=== PATIENT | female | born 1940 | race Two or more races ===

== ENCOUNTER 2018-08-24 15:47 | Outpatient (CLI) | payer OTHER ==
[~2018-08-24 15:47] MED LIST: LIPITOR40 MG; ZETIA10 MG; ZYRTEC10 MG PO
== END 2018-08-24 16:05 | disposition home or self-care (01) ==
LOC: RAD 15:47
DX: M54.2 Cervicalgia (principal)

== ENCOUNTER → 2019-11-14 | Outpatient (CLI) | payer OTHER ==
[~2019-11-14] MED LIST changes: +REMINYL8 MG
== END | disposition home or self-care (01) ==
LOC: TOM 09:14
DX: G44.89 Other headache syndrome (principal)

== ENCOUNTER 2019-11-19 10:16 | Emergency (ER) | payer OTHER ==
[~2019-11-19] VITALS: Ht 157.5 cm; Wt 52.6 kg
[~2019-11-19 10:16] MED LIST changes: -REMINYL8 MG
[2019-11-19] MEDS ORDERED: REMINYL8 MG (10:24)
== END 2019-11-19 12:17 | disposition home or self-care (01) ==
LOC: ER 10:16
DX: M25.552 Pain in left hip (principal); M25.551 Pain in right hip; S30.0XXS Contusion of lower back and pelvis, sequela; W18.09XS Striking against other object with subsequent fall, sequela

== ENCOUNTER → 2019-11-22 | Outpatient (CLI) | payer OTHER ==
[~2019-11-22] MED LIST changes: +REMINYL8 MG
== END | disposition home or self-care (01) ==
LOC: RAD 09:49
DX: M54.5 Low back pain (principal)

== ENCOUNTER → 2019-11-26 | Outpatient (CLI) | payer OTHER | END | disposition home or self-care (01) | LOC: MRI 16:08 → RAD 16:08 | DX: M54.5 Low back pain (principal) | CPT/HCPCS: 72148 ==

== ENCOUNTER → 2020-03-25 09:02 | Outpatient (CLI) | payer OTHER | END | disposition home or self-care (01) | LOC: LAB 09:02 | DX: N39.0 Urinary tract infection, site not specified (principal); E11.69 Type 2 diabetes mellitus with other specified complication; E03.8 Other specified hypothyroidism; E78.2 Mixed hyperlipidemia; I11.9 Hypertensive heart disease without heart failure; E78.00 Pure hypercholesterolemia, unspecified; R19.5 Other fecal abnormalities; E55.9 Vitamin D deficiency, unspecified; E53.8 Deficiency of other specified B group vitamins; I02.0 Rheumatic chorea with heart involvement ==

== ENCOUNTER 2020-03-25 11:04 | Outpatient (CLI) | payer OTHER | END 2020-03-25 11:07 | disposition home or self-care (01) | LOC: MRI 11:04 | DX: M54.6 Pain in thoracic spine (principal) | CPT/HCPCS: 72146 ==

== ENCOUNTER 2020-04-01 10:25 | Outpatient (CLI) | payer OTHER | END 2020-04-01 11:08 | disposition home or self-care (01) | LOC: NUCLEAR 10:25 | DX: M81.0 Age-related osteoporosis without current pathological fracture (principal); N39.0 Urinary tract infection, site not specified; I02.0 Rheumatic chorea with heart involvement; E11.69 Type 2 diabetes mellitus with other specified complication; E03.8 Other specified hypothyroidism; E78.2 Mixed hyperlipidemia; I11.9 Hypertensive heart disease without heart failure ==

== ENCOUNTER 2020-11-11 14:53 | Emergency (ER) | payer OTHER ==
[~2020-11-11] VITALS: Ht 152.4 cm; Wt 50.8 kg
[2020-11-11] MEDS ORDERED: CHILDREN'S ASPI81 MG (15:00)
[2020-11-11] MEDS ORDERED: CLOTRIMAZOLE-BE15 G1 TOP (17:05)
[2020-11-11] MEDS ORDERED: CLARITIN10 M1 PO (17:05)
[2020-11-11] MEDS ORDERED: ANTI-ITCH28 GM TOP (17:08)
== END 2020-11-11 17:22 | disposition home or self-care (01) ==
LOC: ER 14:53
DX: R21 Rash and other nonspecific skin eruption (principal); Z20.828 Contact with and (suspected) exposure to other viral communicable diseases

== ENCOUNTER → 2021-10-28 08:00 | Outpatient (CLI) | payer OTHER ==
[~2021-10-28 08:00] MED LIST changes: +ANTI-ITCH28 GM TOP; +CHILDREN'S ASPI81 MG; +CLARITIN10 M1 PO; +CLOTRIMAZOLE-BE15 G1 TOP
== END | disposition home or self-care (01) ==
LOC: PPH VACUNA 08:00
PROVIDERS: ATTEND Emergency Medicine Pediatric Emergency Medicine
DX: Z23 Encounter for immunization (principal)

== ENCOUNTER 2022-01-06 15:12 | Outpatient (CLI) | payer OTHER | END 2022-01-06 15:14 | disposition home or self-care (01) | LOC: RAD 15:12 | PROVIDERS: ATTEND Internal Medicine | DX: M54.6 Pain in thoracic spine (principal); M54.17 Radiculopathy, lumbosacral region ==

== ENCOUNTER 2025-03-17 12:46 | Emergency (ER) | payer BC ==
[~2025-03-17] VITALS: Ht 149.9 cm; Wt 51.3 kg
[2025-03-17 16:34] LABS: HEMOGLOBIN 13.7 g/dL (12.0-15.00); MEAN CELL VOLUME 95.2 fL (80.00-100.00); MEAN CORPUSCULAR HEMOGLOBIN 31.9 pg (27.00-32.0); MEAN CORPUSCULAR HGB CONC 33.5 g/dl (32.0-36.0); PLATELET COUNT 230 K/uL (150-450); RED BLOOD COUNT 4.31 M/uL (4.00-6.00); RED CELL DISTRIBUTION WIDTH 13.9 % (11.5-14.5)
[2025-03-17 17:03] LABS: COVID-19 AG NEGATIVE (NEGATIVE)
[2025-03-17 17:06] LABS: INFLUENZA A AG NEGATIVE (NEGATIVE)
[2025-03-17 17:39] LABS: URINE APPEARANCE Cloudy; URINE BILIRRUBIN Negative (NEGATIVE); URINE BLOOD Moderate; URINE COLOR Dark Yellow; URINE GLUCOSE Negative (NEGATIVE); URINE KETONE Trace (NEGATIVE); URINE LEUKOCYTE Small; URINE NITRATE Negative; URINE PROTEIN Trace (NEGATIVE)
[2025-03-17 17:44] LABS: URINE BACTERIA 8879.9 uL (0.0-1933); URINE EPITHELIAL CELLS 28.3 uL (0.0-38.8); URINE RBC 376.5 uL (0.0-20.8); URINE WBC 68.8 uL (0.0-23.2)
[2025-03-17 18:10] LABS: URINE CAST 0.44 uL (0.0-1.40)
[2025-03-17 18:11] LABS: URINE CRYSTALS FEW /HPF
[2025-03-17 18:46] LABS: POTASSIUM 4.58 mEq/L (3.5-5.1)
[2025-03-17 18:50] LABS: CALCIUM 10.1 mg/dL (8.5-10.1)
[2025-03-17 18:53] LABS: ALBUMIN 3.4 gm/dL (3.4-5.0); CREATININE SERUM 0.71 mg/dL (0.55-1.02); GFR 78.24
[2025-03-17 18:56] LABS: BILIRUBIN TOTAL 0.25 mg/dL (0.3-1.2); GLOBULINA 4.4 G/DL (2.4-3.5); TOTAL PROTEIN 7.8 gm/dL (6.4-8.2)
[2025-03-17] MEDS ORDERED: CEFTRIAXONE SODIUM 1,000 MG in 0.9 % SODIUM CHLORIDE 50 ML IV ONE (19:15)
[2025-03-17] MEDS ORDERED: CEFTRIAXONE SODIUM 1,000 MG VIAL ONE (20:09)
== END 2025-03-17 21:51 | disposition home or self-care (01) ==
LOC: ER 12:46
PROVIDERS: General Practice
DX: J10.1 Influenza due to other identified influenza virus with other respiratory manifestations (principal); N39.0 Urinary tract infection, site not specified; R05.9 Cough, unspecified; Z20.822 Contact with and (suspected) exposure to COVID-19

== ENCOUNTER 2025-08-29 13:46 | Emergency (ER) | payer OTHER ==
[~2025-08-29] VITALS: Ht 154.9 cm; Wt 51.3 kg
[2025-08-29] MEDS ORDERED: TRAMADOL HCL 50 MG TABLET PO ONE (16:00)
[2025-08-29 16:12] LABS: BASO % 0.6 % (0.1-1.2); EOS # 0.08 (0.04-0.54); EOS % 0.7 % (0.7-7.0); LYMPH # 1.98 (1.18-3.74); LYMPH % 17.2 % (19.3-53.1); MEAN PLATELET VOLUME 9.70 fl (9.4-12.4); MONO # 0.78 (0.24-0.82); MONO % 6.8 % (4.7-12.5); NEUT # 8.59 (1.56-6.13); NEUT % 74.4 % (34.0-71.1); RED CELL DISTRIBUTION WIDTH 14.1 % (11.6-14.4)
[2025-08-29 16:43] LABS: INR 0.98
[2025-08-29 16:53] LABS: ALT/SGPT 27.0 U/L (12-78); AST/SGOT 20.0 U/L (15-37); BILIRUBIN TOTAL 0.46 mg/dL (0.3-1.2); BUN CREA RATIO 35.0 (7.0-25.0); CREATININE SERUM 0.72 mg/dL (0.55-1.02); GFR 76.98; GLOBULINA 3.8 G/DL (2.4-3.5); GLUCOSE FASTING 140.0 mg/dL (65-100); OSMOLALITY SERUM 292.0 MOSM/KG (275-295)
== END 2025-08-29 19:09 | disposition home or self-care (01) ==
LOC: ER 13:46
PROVIDERS: General Practice
DX: S89.81XA Other specified injuries of right lower leg, initial encounter (principal); W19.XXXA Unspecified fall, initial encounter; Y93.89 Activity, other specified; Y92.098 Other place in other non-institutional residence as the place of occurrence of the external cause; Y99.8 Other external cause status; M25.569 Pain in unspecified knee; I10 Essential (primary) hypertension